=== PATIENT | male | born 2000 | race Two or more races ===

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

== ENCOUNTER 2018-12-07 17:28 | Emergency (ER) | payer OTHER ==
[2018-12-07 17:38] VITALS: BP 125/74; PULSE 108; TEMP 97.8; BMI 25.1
[2018-12-07] MEDS ORDERED: KETOROLAC TROMETHAMINE 60 MG/2 ML VIAL IM ONE (17:53)
--- NOTE | 2018-12-07 18:04 | PDOC ---
History of Present Illness - General Chief Complaint: Injury Stated Complaint: INJURY Time Seen by Provider: 12/07/18 17:43 History Source: Patient Exam Limitations: No Limitations (R shoulder and L knee pain) - History of Present Illness Pain Location: reports: lower extremity (L knee pain), upper extremity (R knee pain) Past History - Travel Traveled outside of the country in the last 30 days: No Close contact w/someone who was outside of country & ill: No - Past Medical History Allergies/Adverse Reactions: Allergies Allergy/AdvReac Type Severity Reaction Status Date / Time No Known Allergies Allergy Verified 12/20/17 23:39 Home Medications: Ambulatory Orders Famotidine [Pepcid -] 20 mg PO BID PRN #14 tablet 02/12/18 Mag Hydrox/Al Hydrox/Simeth [Mylanta Suspension -] 30 ml PO Q6H PRN #1 bottle Ibuprofen 800 mg PO ACDIN 10 Days #30 tablet 12/07/18 COPD: No - Immunization History Immunization Up to Date: Yes - Suicide/Smoking/Psychosocial Hx Smoking History: Never smoked Have you smoked in the past 12 months: No Hx Alcohol Use: Yes Drug/Substance Use Hx: Yes (MARIJUANA) Substance Use Type: None Review of Systems - Review of Systems Able to Perform ROS?: Yes Is the patient limited Irish proficient: No Constitutional: No: Chills, Fever Cardiac (ROS): No: Chest Pain Musculoskeletal: Yes: Joint Pain (R shoulder and knee). No: Back Pain, Muscle Weakness, Neck Pain Neurological: No: Headache, Numbness, Paresthesia *Physical Exam - Vital Signs Last Vital Signs Temp Pulse Resp BP Pulse Ox 97.8 F 108 H 17 125/74 98 12/07/18 17:36 12/07/18 17:36 12/07/18 17:36 12/07/18 17:36 12/07/18 17:36 - Physical Exam General Appearance: Yes: Nourished HEENT: positive: EOMI, Normal ENT Inspection Respiratory/Chest: positive: Lungs Clear, Normal Breath Sounds Cardiovascular: positive: Regular Rhythm, Regular Rate, S1, S2 Extremity: positive: Normal Capillary Refill, Other (R shoulder: limited ROM on extension due to pain, + abrasion in humeral region. L knee: FROM with pain flexion, + limping gait. ) Neurologic: positive: spring inspector II-XII NML intact, Fully Oriented, Alert ED Treatment Course - RADIOLOGY Radiology Studies Ordered: Category Date Time Status HUMERUS-RIGHT [RAD] Stat Radiology 12/07/18 17:54 Ordered KNEE 3 POS-LEFT [RAD] Stat Radiology 12/07/18 17:54 Ordered SHOULDER-RIGHT [RAD] Stat Radiology 12/07/18 17:54 Ordered Medical Decision Making - Medical Decision Making 12/07/18 17:59 18 years old male [id number] presents with right shoulder and left knee pain. patient reports that he was trying to get away from the police by attemptingto climb out of his window from a second floor story building yesterday. His mother called police with fear that pt was going to hurt himself. Patient reports his leg was stuck in his window he was tased by the police and he fell down and landed right on his right shoulder yesterday. Patient reports he was taken to [facility] for psychiatric evaluation and after 20 hours he was released. His shoulder and left knee was not evaluated doing ER stay at [facility]. He denies any headache any LOC or head trauma during this event. He is complaining of right shoulder pain today and left knee pain. On examination patient does have range of motion of the right shoulder but is limited limited on extension due to pain. He does have an abrasion in the humor region of the right upper Peterson arm. His left knee is unremarkable on exam he does have a limping gait. No SI/HI currently 12/07/18 19:19 Shoulder and knee xray negative for fx shoulder sling given for comfort, advised to f/u ortho in 1-2wks if pain persistent 12/07/18 19:29 *DC/Admit/Observation/Transfer Diagnosis at time of Disposition: Shoulder pain, right Qualifiers: Chronicity: acute Qualified Code(s): M25.511 - Pain in right shoulder Knee pain, left Qualifiers: Chronicity: acute Qualified Code(s): M25.562 - Pain in left knee - Discharge Dispostion Disposition: HOME Condition at time of disposition: Stable Decision to Admit order: No - Prescriptions Prescriptions: Ibuprofen 800 mg PO ACDIN 10 Days #30 tablet - Referrals Referrals: Jarvis Szymanski MD [Staff Physician] - - Patient Instructions Additional Instructions: Your x-ray was negative any fracture or dislocation Please follow up with orthopedics if pain persist for re-evaluation Return to the Emergency Department if worsening symptoms - Post Discharge Activity
[2018-12-07] MEDS ORDERED: KETOROLAC TROMETHAMINE 60 MG/2 ML VIAL ONE (18:11)
[2018-12-07] MEDS ORDERED: CALCIUM GLUCONATE 10% - 1,000 MG/10 ML VIAL ONE (18:41)
== END 2018-12-07 19:33 | disposition home or self-care (01) ==
LOC: JERFT 17:28
PROC: 3E0233Z Introduction of Anti-inflammatory into Muscle, Percutaneous Approach (ICD-10-PCS; principal; 2018-12-07)
DX: M25.511 Pain in right shoulder (principal); M25.562 Pain in left knee; Y35.893A Legal intervention involving other specified means, suspect injured, initial encounter; Y93.89 Activity, other specified; Y92.038 Other place in apartment as the place of occurrence of the external cause; Y99.8 Other external cause status
CPT/HCPCS: 73030-TC-RT-FY; 73060-TC-RT-FY; 73562-TC-LT-FY; 96372; 99282-25

== ENCOUNTER 2025-04-17 01:32 | Emergency (ER) | payer OTHER ==
[2025-04-17 01:42] VITALS: BP 102/49; PULSE 64; RESP 18; TEMP 97.9; BMI 27.2
[2025-04-17] MEDS ORDERED: RABIES VACCINE (PCEC)/PF 2.5 UNIT/VIAL IM ONE (01:59)
[2025-04-17] MEDS: RABIES VACCINE (PCEC)/PF 2.5 UNIT/VIAL IM ONE (02:06)
== END 2025-04-17 02:07 | disposition home or self-care (01) ==
LOC: JER 01:32
PROC: 3E0234Z Introduction of Serum, Toxoid and Vaccine into Muscle, Percutaneous Approach (ICD-10-PCS; principal; 2025-04-17)
DX: Z23 Encounter for immunization (principal)
CPT/HCPCS: 90675; 99281-25

== ENCOUNTER 2025-04-24 21:53 | Emergency (ER) | payer OTHER ==
[2025-04-24 22:01] VITALS: BP 106/62; PULSE 68; RESP 18; TEMP 98.3; BMI 27.2
[2025-04-24] MEDS ORDERED: RABIES VACCINE (PCEC)/PF 2.5 UNIT/VIAL IM ONE (22:08)
[2025-04-24] MEDS: RABIES VACCINE (PCEC)/PF 2.5 UNIT/VIAL IM ONE (22:19)
== END 2025-04-24 22:36 | disposition home or self-care (01) ==
LOC: JERFT 21:53
PROC: 3E0234Z Introduction of Serum, Toxoid and Vaccine into Muscle, Percutaneous Approach (ICD-10-PCS; principal; 2025-04-24)
DX: Z23 Encounter for immunization (principal)
CPT/HCPCS: 90675; 99281-25